=== PATIENT | male | born 1965 | race Caucasian/White ===

== ENCOUNTER 2017-08-08 13:13 | Emergency (ER) | payer SELFPAY ==
[~2017-08-08] VITALS: Ht 180.3 cm; Wt 102.0 kg
[~2017-08-08 13:13] MED LIST: DOXY100T PO; LORT7.5T3 PO; PRED20 PO; Z.0.NO CURRENT MEDS
[2017-08-08 13:16] VITALS: BP 187/96; PULSE 73; RESP 18; TEMP 98.6; O2SAT 100
[2017-08-08] MEDS ORDERED: SODIUM CHLOR 0.9% 1000 ML INJ 1,000 ML IV SCH (13:27)
[2017-08-08] MEDS ORDERED: HYDROmorphone HCL PF 0.5 MG/0.5 ML SYRINGE IV PUSH ONE ×2 (13:30→14:30)
[2017-08-08] MEDS ORDERED: SODIUM CHLORIDE 0.9% FLUSH 10 ML FLUSH IV FLUSH PRN (13:30)
[2017-08-08] MEDS ORDERED: ONDANSETRON HCL 4 MG/2 ML VIAL IVP ONE (13:30)
[2017-08-08 14:05] LABS: BLOOD, URINE NEG (NEG); COMMENT (UR) CULT NOT INDICATED; CULTURE IF INDICATED CULT NOT INDICATED; GLUCOSE,URINE NEG (NEG); KETONE, URINE NEG (NEG); MUCUS URINE FEW /lpf (OCC); NITRITE,URINE NEG (NEG); SQUAMOUS EPITHELIAL CELL URINE <1 /hpf (0-5); URINE COLOR YELLOW (YELLW/STRAW)
[2017-08-08 14:09] LABS: AUTOMATED NEUTROPHIL # 11.6 TH/MM3 (1.8-7.7); BASOPHIL # 0.1 TH/MM3 (0-0.2); BASOPHIL % 0.4 % (0.0-2.0); EOSINOPHIL % 0.3 % (0.0-4.0); LYMPH % 12.8 % (9.0-44.0); LYMPHOCYTE # 1.9 TH/MM3 (1.0-4.8); MEAN CELL VOLUME 94.9 FL (80.0-100.0); MEAN CORPUSCULAR HEMOGLOBIN 33.3 PG (27.0-34.0); MONO % 6.6 % (0.0-8.0); NEUT % 79.9 % (16.0-70.0); PLATELET COUNT 232 TH/MM3 (150-450); RED BLOOD COUNT 4.22 MIL/MM3 (4.50-5.90); RED CELL DISTRIBUTION WIDTH 13.7 % (11.6-17.2); WHITE BLOOD COUNT 14.6 TH/MM3 (4.0-11.0)
[2017-08-08 14:11] LABS: HEMO FLAGS AUTO DIFF
[2017-08-08 14:15] VITALS: BP 155/81; PULSE 75; PULSE 83; RESP 16; O2SAT 98; O2SAT 99
[2017-08-08] MEDS ORDERED: HYDROmorphone HCL PF 1 MG/ML VIAL IV PUSH ONE (14:30)
--- NOTE | 2017-08-08 14:30 | PD ---
HPI Chief Complaint: Fall Time Seen by Provider: 13:27 Travel History International Travel<30 days: No Contact w/Intl Traveler<30days: No Traveled to known affect area: No History of Present Illness HPI 51-year-old male arrives by private vehicle after he fell from a roof onto the driveway and then rolled onto the grass. Estimated height of about 10 feet is reported. He denies head trauma. He denies loss of consciousness. His primary complaint is pain about the lower right anterior chest wall which radiates to the back. It's worse with deep inspiration. He denies bloody urine. No vomiting. The fall occurred about 30 minutes prior to ER arrival. He was able to ambulate from his car into the emergency department waiting room. [facility] Past Medical History Diminished Hearing: No Medical other: Yes (GOUT ) Tetanus Vaccination: > 5 Years Influenza Vaccination: No Past Surgical History Surgical History: No Previous Surgery Social History Alcohol Use: Yes (daily 1 beer) Tobacco Use: No Substance Use: No Allergies-Medications (Allergen,Severity, Reaction): Coded Allergies: No Known Allergies (Verified Adverse Reaction, Unknown, 08/08/17) Reported Meds & Prescriptions Reported Meds & Active Scripts Active Percocet (Oxycodone-Acetaminophen) 10-325 mg Tab 1 Tab PO Q6H PRN Review of Systems Except as stated in HPI: all other systems reviewed are Neg General / Constitutional: No: Fever Physical Exam Narrative GENERAL: 51-year-old male well-nourished well-developed no acute distress SKIN: Warm and dry. HEAD: Atraumatic. Normocephalic. EYES: Pupils equal and round. No scleral icterus. No injection or drainage. ENT: No nasal bleeding or discharge. Mucous membranes pink and moist. NECK: Trachea midline. No JVD. CARDIOVASCULAR: Regular rate and rhythm. RESPIRATORY: No accessory muscle use. Clear to auscultation. Breath sounds equal bilaterally. Tenderness palpation along the right anterior chest wall towards the costal margin. GASTROINTESTINAL: Soft. Diffuse tenderness on the right side. There is no gross abnormality on visual inspection. MUSCULOSKELETAL: Extremities without clubbing, cyanosis, or edema. No obvious deformities. NEUROLOGICAL: Awake and alert. No obvious cranial nerve deficits. Motor grossly within normal limits. Five out of 5 muscle strength in the arms and legs. Normal speech. PSYCHIATRIC: Appropriate mood and affect; insight and judgment normal. Data Data Last Documented VS Vital Signs Date Time Temp Pulse Resp B/P (MAP) Pulse Ox O2 Delivery O2 Flow Rate FiO2 08/08/17 16:46 64 160/74 (102) 08/08/17 14:15 16 98 Nasal Cannula 2.00 08/08/17 13:16 98.6 Vital signs reviewed Orders Orders Complete Blood Count With Diff (08/08/17 13:27) Comprehensive Metabolic Panel (08/08/17 13:27) Lipase (08/08/17 13:27) Urinalysis - C+S If Indicated (08/08/17 13:27) Iv Access Insert/Monitor (08/08/17 13:27) Ecg Monitoring (08/08/17:) Oximetry (08/08/17:) Ondansetron Inj (Zofran Inj) (08/08/17 13:30) Sodium Chlor 0.9% 1000 Ml Inj (Ns 1000 M (08/08/17 13:27) Sodium Chloride 0.9% Flush (Ns Flush) (08/08/17 13:30) Hydromorphone Pf Inj (Dilaudid Pf Inj) (08/08/17 13:30) Chest, Single Ap (08/08/17 ) Drug Screen, Random Urine (08/08/17 14:23) Hydromorphone Pf Inj (Dilaudid Pf Inj) (08/08/17 14:30) Hydromorphone Pf Inj (Dilaudid Pf Inj) (08/08/17 14:30) Ct Abd/Pel W Iv Contrast(Rout) (08/08/17 15:06) Ct Thorax/ Chest W Iv Contrast (08/08/17 15:09) Iohexol 350 Inj (Omnipaque 350 Inj) (08/08/17 15:47) Ed Discharge Order (08/08/17 16:27) Resp Incentive Spirometry (08/08/17 ) Labs Laboratory Tests Test 08/08/17 13:35 08/08/17 14:50 White Blood Count 14.6 TH/MM3 Red Blood Count 4.22 MIL/MM3 Hemoglobin 14.0 GM/DL Hematocrit 40.0 % Mean Corpuscular Volume 94.9 FL Mean Corpuscular Hemoglobin 33.3 PG Mean Corpuscular Hemoglobin Concent 35.0 % Red Cell Distribution Width 13.7 % Platelet Count 232 TH/MM3 Mean Platelet Volume 8.2 FL Neutrophils (%) (Auto) 79.9 % Lymphocytes (%) (Auto) 12.8 % Monocytes (%) (Auto) 6.6 % Eosinophils (%) (Auto) 0.3 % Basophils (%) (Auto) 0.4 % Neutrophils # (Auto) 11.6 TH/MM3 Lymphocytes # (Auto) 1.9 TH/MM3 Monocytes # (Auto) 1.0 TH/MM3 Eosinophils # (Auto) 0.0 TH/MM3 Basophils # (Auto) 0.1 TH/MM3 CBC Comment AUTO DIFF Differential Comment AUTO DIFF CONFIRMED Platelet Estimate NORMAL Platelet Morphology Comment NORMAL Red Cell Morphology Comment NORMAL Urine Color YELLOW Urine Turbidity CLEAR Urine pH 7.0 Urine Specific Golva 1.024 Urine Protein 30 mg/dL Urine Glucose (UA) NEG mg/dL Urine Ketones NEG mg/dL Urine Occult Blood NEG Urine Nitrite NEG Urine Bilirubin NEG Urine Urobilinogen LESS THAN 2.0 MG/DL Urine Leukocyte Esterase NEG Urine RBC 8 /hpf Urine WBC 1 /hpf Urine Squamous Epithelial Cells <1 /hpf Urine Mucus FEW /lpf Microscopic Urinalysis Comment CULT NOT INDICATED Urine Opiates Screen NEG Urine Barbiturates Screen NEG Urine Amphetamines Screen NEG Urine Benzodiazepines Screen NEG Urine Cocaine Screen NEG Urine Cannabinoids Screen POS Blood Urea Nitrogen 14 MG/DL Creatinine 0.86 MG/DL Random Glucose 82 MG/DL Total Protein 7.2 GM/DL Albumin 3.7 GM/DL Calcium Level 8.1 MG/DL Alkaline Phosphatase 60 U/L Aspartate Amino Transf (AST/SGOT) 74 U/L Alanine Aminotransferase (ALT/SGPT) 59 U/L Total Bilirubin 0.6 MG/DL Sodium Level 139 MEQ/L Potassium Level 4.9 MEQ/L Chloride Level 107 MEQ/L Carbon Dioxide Level 24.6 MEQ/L Anion Gap 7 MEQ/L Estimat Glomerular Filtration Rate 93 ML/MIN Lipase 186 U/L [facility] Medical Decision Making Medical Screen Exam Complete: Yes Emergency Medical Condition: Yes Medical Record Reviewed: Yes Differential Diagnosis hemothorax, pneumothorax, rib fracture, flail chest, liver laceration, perinephric hematoma Narrative Course CBC & BMP Diagram 08/08/17 13:35 08/08/17 14:50 Total Protein 7.2, Albumin 3.7, Calcium Level 8.1 L, Alkaline Phosphatase 60, Aspartate Amino Transf (AST/SGOT) 74 H, Alanine Aminotransferase (ALT/SGPT) 59, Total Bilirubin 0.[address] 08/08/17 1509 Signed Impressions: Service Date/Time: Tuesday, August 08, 2017 15:31 - CONCLUSION: 1. Nondisplaced fracture of the lateral right seventh rib with adjacent focal lung contusion. No pneumothorax or effusion. Ino Loza MD Abdomen/Pelvis CT 08/08/17 1506 Signed Impressions: Service Date/Time: Tuesday, August 08, 2017 15:31 - CONCLUSION: 1. No acute CT abnormality in the abdomen or pelvis status post trauma. Ino Loza MD Chest X-Ray 08/08/17 0000 Signed Impressions: Service Date/Time: Tuesday, August 08, 2017 13:52 - CONCLUSION: No acute disease. Board Certified Radiologist. This report was verified electronically. pain controlled O2 sat 100% pt introduced complaint of drainage and wound from rectum and on exam has an open draining non-tender wound just posterior to anus, 1cm open, non-tender lesion follow up d/w patient who is agreeable with plan Diagnosis Primary Impression: Fall Qualified Codes: W19.XXXA - Unspecified fall, initial encounter Additional Impressions: Rib fracture Qualified Codes: S22.31XA - Fracture of one rib, right side, initial encounter for closed fracture Pulmonary contusion Qualified Codes: S27.321A - Contusion of lung, unilateral, initial encounter Referrals: Jason Moody MD, Dr is colorectal surgeon [facility] Additional Instructions: You have a choice when it comes to health care, and we are glad that you chose [facility]. Hopefully, we have met your expectations on today's visit. You are welcome to return to [facility] at any time, as we are committed to meeting the health care needs of our community. Med/Other Pt SpecificInfo: Prescription(s) given Scripts Oxycodone-Acetaminophen (Percocet) 10-325 mg Tab 1 TAB PO Q6H Y for PAIN SCALE 6 TO 10, #20 TAB 0 Refills Prov: Yonas Hayden MD 08/08/17 Disposition: 01 DISCHARGE HOME Condition: Stable Yonas Hayden MD Aug 08, 2017 14:30
--- NOTE | 2017-08-08 14:33 | RADRPT ---
EXAM DATE/TIME: 08/08/2017 13:52 [facility] COMPARISON: No previous studies available for comparison. INDICATIONS : Short of breath, pain in chest and ribs, fell off roof today MEDICAL HISTORY : None. SURGICAL HISTORY : None. ENCOUNTER: Initial ACUITY: 1 day PAIN SCORE: 7/10 LOCATION: Bilateral chest FINDINGS: A single view of the chest demonstrates the lungs to be symmetrically aerated without evidence of mas s, infiltrate or effusion. The cardiomediastinal contours are unremarkable. Osseous structures are intact. CONCLUSION: No acute disease. Board Certified Radiologist. This report was verified electronically.
[2017-08-08 14:36] LABS: PLATELET ESTIMATE SMEAR NORMAL (NORMAL); PLATELET MORPHOLOGY NORMAL (NORMAL); SCAN/DIFF AUTO DIFF CONFIRMED
[2017-08-08 15:41] LABS: ALKALINE PHOSPHATASE 60 U/L (45-117); TOTAL BILIRUBIN ADULT 0.6 MG/DL (0.2-1.0)
[2017-08-08] MEDS ORDERED: IOHEXOL 350 MG/ML 10 ML VIAL (for RAD DIAG) IVCONTRAST ONE (15:47)
[2017-08-08 15:51] LABS: ALT (GPT) 59 U/L (12-78); ANION GAP 7 MEQ/L (5-15); AST (GOT) 74 U/L (15-37); BICARBONATE 24.6 MEQ/L (21.0-32.0); BLOOD UREA NITROGEN 14 MG/DL (7-18); CHLORIDE 107 MEQ/L (98-107); GLOMERULAR FILTRATION RATE 93 ML/MIN (>89); SODIUM (NA) 139 MEQ/L (136-145)
[2017-08-08 15:52] LABS: POTASSIUM 4.9 MEQ/L (3.5-5.1)
--- NOTE | 2017-08-08 16:14 | RADRPT ---
EXAM DATE/TIME: 08/08/2017 15:31 [facility] COMPARISON: CT ABDOMEN & PELVIS W CONTRAST, August 08, 2017, 15:31. INDICATIONS : Fall from roof. IV CONTRAST: 96 cc IV ; Cumulative dose for multiple exams. RADIATION DOSE: 20.41 CTDIvol (mGy) ; Combined studies - Thorax/Abdomen/Pelvis MEDICAL HISTORY : None SURGICAL HISTORY : None. ENCOUNTER: Initial ACUITY: 1 day PAIN SCALE: 6/10 LOCATION: Right chest TECHNIQUE: Volumetric scanning of the chest was performed. Using automated exposure control and adjustment of t he mA and/or kV according to patient size, radiation dose was kept as low as reasonably achievable to obtain optimal diagnostic quality images. DICOM format image data is available electronically for review and comparison. Follow-up recommendations for detected pulmonary nodules are based at a minimum on nodule size and pa tient risk factors according to Fleischner Society Guidelines. FINDINGS: LUNGS: Small focal groundglass opacity in the right lower lobe adjacent to a rib fracture consistent with sm all lung contusion. PLEURA: There is no pleural thickening or pleural effusion. MEDIASTINUM: The heart and great vessels demonstrate no acute abnormality. There is no mediastinal or hilar lymph adenopathy. AXILLAE: Within normal limits. No lymphadenopathy. SKELETAL: Nondisplaced fracture of the lateral right seventh rib. Remaining osseous structures are intact the MISCELLANEOUS: The visualized upper abdominal organs demonstrate no acute abnormality. CONCLUSION: 1. Nondisplaced fracture of the lateral right seventh rib with adjacent focal lung contusion. No pneu mothorax or effusion. Ino Loza MD on August 08, 2017 at 15:55 Board Certified Radiologist. This report was verified electronically.
--- NOTE | 2017-08-08 16:21 | RADRPT ---
EXAM DATE/TIME: 08/08/2017 15:31 [facility] COMPARISON: No previous studies available for comparison. INDICATIONS : Fall from roof. IV CONTRAST: 96 cc Omnipaque 350 (iohexol) IV ; Cumulative dose for multiple exams. ORAL CONTRAST: No oral contrast ingested. RADIATION DOSE: 20.41 CTDIvol (mGy) MEDICAL HISTORY : None SURGICAL HISTORY : None. ENCOUNTER: Initial ACUITY: 1 day PAIN SCALE: 6/10 LOCATION: Right abdomen near spleen. TECHNIQUE: Volumetric scanning of the abdomen and pelvis was performed. Using automated exposure control and ad justment of the mA and/or kV according to patient size, radiation dose was kept as low as reasonably achievable to obtain optimal diagnostic quality images. DICOM format image data is available electro nically for review and comparison. FINDINGS: LIVER: Homogeneous density without lesion. There is no dilation of the biliary tree. No calcified gallston es. SPLEEN: Normal size without lesion. PANCREAS: Within normal limits. KIDNEYS: Normal in size and shape. There is no mass, stone or hydronephrosis. ADRENAL GLANDS: Within normal limits. VASCULAR: There is no aortic aneurysm. BOWEL/MESENTERY: The stomach, small bowel, and colon demonstrate no acute abnormality. There is no free intraperitone al air or fluid. ABDOMINAL WALL: Very small periumbilical anterior abdominal wall hernia. RETROPERITONEUM: There is no lymphadenopathy. BLADDER: No wall thickening or mass. REPRODUCTIVE: Within normal limits. INGUINAL: There is no lymphadenopathy or hernia. MUSCULOSKELETAL: Mild dextroscoliosis of the lumbar spine centered at L1-2. Osseous structures are intact without evid ence for acute bony fracture. CONCLUSION: 1. No acute CT abnormality in the abdomen or pelvis status post trauma. Ino Loza MD on August 08, 2017 at 16:13 Board Certified Radiologist. This report was verified electronically.
[2017-08-08] MEDS ORDERED: NORC5TAB PO (16:26)
[2017-08-08 16:46] VITALS: BP 160/74; PULSE 64
[2017-08-08] MEDS ORDERED: PERC10TA27 PO (16:50)
== END 2017-08-08 18:00 | disposition home or self-care (01) ==
LOC: NEPE 13:13
DX: S22.31XA Fracture of one rib, right side, initial encounter for closed fracture (principal); S27.329A Contusion of lung, unspecified, initial encounter; R07.9 Chest pain, unspecified; W13.2XXA Fall from, out of or through roof, initial encounter
CPT/HCPCS: 71010; 71260; 74177; 80053; 80307; 81001; 83690; 85025; 94150; 96361; 96374; 96375; 99285; J1170; J2405; J7030; Q9967